=== PATIENT | male | born 1990 | race Hispanic/Latino ===

== ENCOUNTER 2024-11-16 11:20 | Emergency (ER) | payer SELFPAY ==
--- NOTE | ~2024-11-16 | CT_ITS ---
EXAMINATION: CT abdomen pelvis w con DATE: 11/16/2024 16:55 INDICATION: RLQ pain TECHNIQUE: Computed tomography (CT) of the abdomen and pelvis was performed with 100 mL Omnipaque-350 intravenous contrast. Automated exposure control and iterative reconstruction technique were employe d. The dose-length product was 258.90 mGy-cm. COMPARISON: None. FINDINGS: Lower thorax: Unremarkable Liver: Normal. Biliary/Gallbladder: Gallbladder is normal. No bile duct dilation. Pancreas: No mass or duct dilation. Spleen: Normal. Adrenals:No mass. Kidneys: No suspicious mass, obstructing stone, or hydronephrosis. Subcentimeter right lower pole hyp odensity, too small to characterize but most likely represents a cyst. GI tract: Mild distal esophageal and antral wall edema No small or large bowel dilation. Normal appen nigel. Mild diverticulosis without diverticulitis. Mesentery/Peritoneum: No ascites, mass, or free air. Retroperitoneum: No mass. Pelvis: Pelvic organs are within normal limits. Soft Tissues: Small uncomplicated appearing fat-containing umbilical hernia. Bones: No acute osseous finding. IMPRESSION: Mild esophagitis/antral gastritis. Otherwise, no acute abdominopelvic process detected. Reviewed, dictated and finalized at location K.
[2024-11-16 11:22] VITALS: BP 156/94; PULSE 66; RESP 20; TEMP 36.4; O2SAT 99
--- NOTE | 2024-11-16 13:05 | ED_ITS ---
HPI - Abdominal Pain General Chief Complaint: Abdominal Pain <Sara Ventura PA-C - Last Filed: 11/16/24 17:46> Stated Complaint: abd pain <Sara Ventura PA-C - Last Filed: 11/16/24 17:46> Time Seen by Provider: 11/16/24 13:05 <Sara Ventura PA-C - Last Filed: 11/16/24 17:46> Focused HPI: This is a 34 year old male that presents to the ER for abdominal pain. Reports pain in his mid abdomen as well as right lower quadrant. Ongoing over the last 3 days. Reports some dysuria. Denies fever, vomiting, diarrhea, hematuria. GENERAL: Well-appearing, well-nourished, and in no acute distress. HEAD: Normocephalic, atraumatic. CHEST: Clear to auscultation. ?No respiratory distress. HEART: Regular rate and rhythm.? NEURO: ?Alert and oriented x3. Patient screened in triage and initial orders placed.? ?Additional care and disposition to be based upon?diagnostic testing and treatment. <Sara Ventura PA-C - Last Filed: 11/16/24 17:46> History of Present Illness HPI narrative: I agree with the above eyes PI <Riaz Sanchez MD - Last Filed: 11/16/24 21:45> Related Data Allergies/Adverse Reactions: Allergies Allergy/AdvReac Type Severity Reaction Status Date / Time No Known Allergies Allergy Verified 11/16/24 11:26 <Sara Ventura PA-C - Last Filed: 11/16/24 17:46> Review of Systems 2 Review of Systems: All systems reviewed & are unremarkable except as noted in HPI and below <Sara Ventura PA-C - Last Filed: 11/16/24 17:46> Exam 2 Narrative: APPEARANCE: Well appearing, no pain, no distress, well-nourished. HEAD: normocephalic, atraumatic. EYES: PERRLA/EOMI, conjunctivae clear. NOSE: Normal no drainage EARS:TMS clear with good light reflex. THROAT: Pharynx clear, no exudate. NECK: Supple. No adenopathy, no masses. RESPIRATORY: Airway patent, respirations nonlabored. Clear to auscultation bilaterally, no rales, rhonchi, wheezing. CARDIOVASCULAR: Regular rate and rhythm without murmurs rubs or gallops. ABDOMINAL: Mild right lower quadrant tenderness to palpation MUSCULOSKELETAL: Moves all extremities. Strength/ROM intact, No edema, No calf tenderness. NEURO: Alert. Cranial nerves II through XII intact. Good gait. Good coordination SKIN: Warm, dry. Normal Color <Riaz Sanchez MD - Last Filed: 11/16/24 21:45> Course Vital Signs Vital signs: Vital Signs Temperature 97.6 F 11/16/24 11:22 Pulse Rate 66 11/16/24 11:22 Respiratory Rate 20 11/16/24 11:22 Blood Pressure 156/94 H 11/16/24 11:22 Pulse Oximetry 99 11/16/24 11:22 Oxygen Delivery Room Air 11/16/24 11:22 Temperature 97.4 F L 11/16/24 15:13 Pulse Rate 72 11/16/24 17:48 Respiratory Rate 16 11/16/24 17:48 Blood Pressure 127/60 11/16/24 17:48 Pulse Oximetry 99 11/16/24 17:48 Oxygen Delivery Room Air 11/16/24 11:22 <Sara Ventura PA-C - Last Filed: 11/16/24 17:46> Vital Signs Temperature 97.6 F 11/16/24 11:22 Pulse Rate 66 11/16/24 11:22 Respiratory Rate 20 11/16/24 11:22 Blood Pressure 156/94 H 11/16/24 11:22 Pulse Oximetry 99 11/16/24 11:22 Oxygen Delivery Room Air 11/16/24 11:22 Temperature 97.4 F L 11/16/24 15:13 Pulse Rate 72 11/16/24 17:48 Respiratory Rate 16 11/16/24 17:48 Blood Pressure 127/60 11/16/24 17:48 Pulse Oximetry 99 11/16/24 17:48 Oxygen Delivery Room Air 11/16/24 11:22 <Riaz Sanchez MD - Last Filed: 11/16/24 21:45> MDM - Abdominal Pain MDM Narrative Medical decision making narrative: [age] old male per the emergency department for evaluation for lower abdominal pain. Patient is currently a afebrile with no leukocytosis and normal hemoglobin patient has no acute abnormalities on his CMP UA was negative for infection. CT scan was negative for significant hernia. Patient was encouraged close follow-up with primary care physician. <Riaz Sanchez MD - Last Filed: 11/16/24 21:45> Differential Diagnosis Differential diagnosis: Likely abdominal pain, acute appendicitis, constipation, diverticulitis, small bowel obstruction and other <Riaz Sanchez MD - Last Filed: 11/16/24 21:45> Lab Data Attestation: I reviewed the patient's lab results. <Riaz Sanchez MD - Last Filed: 11/16/24 21:45> Result diagrams: 11/16/24 13:12 11/16/24 13:12 <Sara Ventura PA-C - Last Filed: 11/16/24 17:46> Labs: Lab Results 11/16/24 11/16/24 Range/Units 13:12 15:15 WBC 5.9 (4.5-10.0) K/mm3 RBC 5.27 (4.6-6.20) M/mm3 Hgb 15.2 (14.0-18.0) g/dL Hct 46.9 (42.0-52.0) % MCV 89.0 (80-100) fl MCH 28.8 (26-34) pg MCHC 32.4 (32-36) g/dl RDW 13.0 (11.5-14.5) % Plt Count 287 (150-375) k/mm3 MPV 10.1 (7.4-10.4) fl Immature Gran % (Auto) 0.2 (0-0.5) % Neut % (Auto) 59.2 (45.5-73.1) % Lymph % (Auto) 30.2 (18.3-44.2) % [place] % (Auto) 8.4 (2.6-8.5) % Eos % (Auto) 1.7 (0-4.4) % Baso % (Auto) 0.3 (0.2-1.2) % Lymph # (Auto) 1.79 (0.9-3.2) K/mm3 [place] # (Auto) 0.5 (0.1-0.6) K/mm3 Eos # (Auto) 0.1 (0-0.3) K/mm3 Baso # (Auto) 0.0 (0.0-0.1) K/mm3 Abs Immat Gran (auto) 0.01 (0.00-0.031) K/mm3 Absolute Neuts (auto) 3.5 (1.3-6.7) K/mm3 Absolute Nucleated RBC 0.000 (0.0-0.012) K/mm3 Nucleated RBC % 0.0 (0.0-0.2) % Sodium 138 (137-145) mmol/L Potassium 4.2 (3.4-5.0) mmol/L Chloride 99 (98-107) mmol/L Carbon Dioxide 27 (22-30) mmol/L Anion Gap 12 (4-12) mmol/L BUN 17 (9-20) mg/dL Creatinine 0.72 (0.7-1.3) mg/dL Estim Creat Clear Calc 102 ml/min Estimated GFR > 60 (59 - ) Glucose 107 (65-110) mg/dL Calcium 9.3 (8.4-10.2) mg/dL Total Bilirubin 0.5 (0.2-1.3) mg/dL AST 34 (17-59) U/L ALT 28 (6-50) U/L Alkaline Phosphatase 83 (38-126) U/L Total Protein 8.0 (6.3-8.2) g/dL Albumin 4.9 (3.5-5.1) g/dL Lipase 83 (23-300) U/L Urine Color Yellow (Yellow) Urine Appearance Clear (Clear) Urine pH 7.5 (5.0-9.0) Ur Specific [place] 1.026 (1.001-1.035) Urine Protein Trace (Negative) mg/dL Urine Glucose (UA) Negative (Negative) mg/dL Urine Ketones Negative (Negative) mg/dL Ur Blood (Man) Negative (Negative) Urine Nitrate Negative (Negative) Urine Bilirubin Negative (Negative) Urine Urobilinogen 0.2 (<2.0) mg/dL Leukocyte Esterase Rfl Negative (Negative) CRICKET/UL Urine RBC 0-2 (0-2) /hpf Urine WBC 0-5 (0-3) /hpf Ur Squamous Epith Cells None seen (Few) /hpf Urine Bacteria None seen /hpf Urine Casts 0-2 <Sara Ventura PA-C - Last Filed: 11/16/24 17:46> Lab Results 11/16/24 11/16/24 Range/Units 13:12 15:15 WBC 5.9 (4.5-10.0) K/mm3 RBC 5.27 (4.6-6.20) M/mm3 Hgb 15.2 (14.0-18.0) g/dL Hct 46.9 (42.0-52.0) % MCV 89.0 (80-100) fl MCH 28.8 (26-34) pg MCHC 32.4 (32-36) g/dl RDW 13.0 (11.5-14.5) % Plt Count 287 (150-375) k/mm3 MPV 10.1 (7.4-10.4) fl Immature Gran % (Auto) 0.2 (0-0.5) % Neut % (Auto) 59.2 (45.5-73.1) % Lymph % (Auto) 30.2 (18.3-44.2) % [place] % (Auto) 8.4 (2.6-8.5) % Eos % (Auto) 1.7 (0-4.4) % Baso % (Auto) 0.3 (0.2-1.2) % Lymph # (Auto) 1.79 (0.9-3.2) K/mm3 [place] # (Auto) 0.5 (0.1-0.6) K/mm3 Eos # (Auto) 0.1 (0-0.3) K/mm3 Baso # (Auto) 0.0 (0.0-0.1) K/mm3 Abs Immat Gran (auto) 0.01 (0.00-0.031) K/mm3 Absolute Neuts (auto) 3.5 (1.3-6.7) K/mm3 Absolute Nucleated RBC 0.000 (0.0-0.012) K/mm3 Nucleated RBC % 0.0 (0.0-0.2) % Sodium 138 (137-145) mmol/L Potassium 4.2 (3.4-5.0) mmol/L Chloride 99 (98-107) mmol/L Carbon Dioxide 27 (22-30) mmol/L Anion Gap 12 (4-12) mmol/L BUN 17 (9-20) mg/dL Creatinine 0.72 (0.7-1.3) mg/dL Estim Creat Clear Calc 102 ml/min Estimated GFR > 60 (59 - ) Glucose 107 (65-110) mg/dL Calcium 9.3 (8.4-10.2) mg/dL Total Bilirubin 0.5 (0.2-1.3) mg/dL AST 34 (17-59) U/L ALT 28 (6-50) U/L Alkaline Phosphatase 83 (38-126) U/L Total Protein 8.0 (6.3-8.2) g/dL Albumin 4.9 (3.5-5.1) g/dL Lipase 83 (23-300) U/L Urine Color Yellow (Yellow) Urine Appearance Clear (Clear) Urine pH 7.5 (5.0-9.0) Ur Specific [place] 1.026 (1.001-1.035) Urine Protein Trace (Negative) mg/dL Urine Glucose (UA) Negative (Negative) mg/dL Urine Ketones Negative (Negative) mg/dL Ur Blood (Man) Negative (Negative) Urine Nitrate Negative (Negative) Urine Bilirubin Negative (Negative) Urine Urobilinogen 0.2 (<2.0) mg/dL Leukocyte Esterase Rfl Negative (Negative) CRICKET/UL Urine RBC 0-2 (0-2) /hpf Urine WBC 0-5 (0-3) /hpf Ur Squamous Epith Cells None seen (Few) /hpf Urine Bacteria None seen /hpf Urine Casts 0-2 <Riaz Sanchez MD - Last Filed: 11/16/24 21:45> Imaging Data Radiologist's impression: ITS Impressions Abdomen/Pelvis CT 11/16/24 16:56 IMPRESSION: Mild esophagitis/antral gastritis. Otherwise, no acute abdominopelvic process detected. <Sara Ventura PA-C - Last Filed: 11/16/24 17:46> ITS Impressions Abdomen/Pelvis CT 11/16/24 16:56 IMPRESSION: Mild esophagitis/antral gastritis. Otherwise, no acute abdominopelvic process detected. <Riaz Sanchez MD - Last Filed: 11/16/24 21:45> Discharge Plan Discharge Clinical Impression: Abdominal pain Qualifiers: Abdominal location: lower abdomen, unspecified Qualified Code(s): R10.30 - Lower abdominal pain, unspecified <EVELIA Spivey Last Filed: 11/16/24 17:46> Patient Disposition: Home <EVELIA Spivey Last Filed: 11/16/24 17:46> Condition: Stable <EVELIA Spivey Last Filed: 11/16/24 17:46> Instructions: Antibiotic Form, Inguinal Hernia (ED), Abdominal Pain (ED) <EVELIA Spivey Last Filed: 11/16/24 17:46> Additional Instructions: Tylenol and ibuprofen for pain control. Avoid heavy lifting. Have close follow-up with your primary care physician. Your CT scan showed no evidence of hernia but your symptoms may be signs of a forming hernia. <Sara Ventura PA-C - Last Filed: 11/16/24 17:46> Patient Language: Bhutanese <Sara Ventura PA-C - Last Filed: 11/16/24 17:46> Follow-up/Referrals: PHYSICIAN,AGRICULTURAL CHEMIST [Primary Care Provider] - <EVELIA Spivey Last Filed: 11/16/24 17:46>
[2024-11-16 13:21] LABS: Basophils Percent Auto 0.3 % (0.2-1.2); Eosinophils Absolute Auto 0.1 K/mm3 (0-0.3); Eosinophils Percent Auto 1.7 % (0-4.4); Hematocrit 46.9 % (42.0-52.0); Hemoglobin 15.2 g/dL (14.0-18.0); Immature Granulocyte Absolute 0.01 K/mm3 (0.00-0.031); Immature Granulocyte Percent A 0.2 % (0-0.5); Lymphocytes Absolute Auto 1.79 K/mm3 (0.9-3.2); Lymphocytes Percent Auto 30.2 % (18.3-44.2); Mean Corpuscular HGB Conc 32.4 g/dl (32-36); Mean Corpuscular Hemoglobin 28.8 pg (26-34); Mean Platelet Volume 10.1 fl (7.4-10.4); Monocytes Absolute Auto 0.5 K/mm3 (0.1-0.6); Monocytes Percent Auto 8.4 % (2.6-8.5); Neutrophils Absolute Auto 3.5 K/mm3 (1.3-6.7); Neutrophils Percent Auto 59.2 % (45.5-73.1); Platelet Count Result 287 k/mm3 (150-375); Red Blood Count 5.27 M/mm3 (4.6-6.20); White Blood Count 5.9 K/mm3 (4.5-10.0)
[2024-11-16 13:42] LABS: Alanine Aminotransferase 28 U/L (6-50); Albumin Level 4.9 g/dL (3.5-5.1); Alkaline Phosphatase 83 U/L (38-126); Anion Gap 12 mmol/L (4-12); Aspartate Amino Transferase 34 U/L (17-59); Bilirubin,Total 0.5 mg/dL (0.2-1.3); Blood Urea Nitrogen 17 mg/dL (9-20); Calcium 9.3 mg/dL (8.4-10.2); Carbon Dioxide 27 mmol/L (22-30); Chloride 99 mmol/L (98-107); Estimated CRCL calculation 102 ml/min; Estimated Glomerular Filt Rate > 60; Glucose 107 mg/dL (65-110); Lipase 83 U/L (23-300); Potassium 4.2 mmol/L (3.4-5.0); Sodium 138 mmol/L (137-145)
[2024-11-16 15:13] VITALS: BP 120/59; PULSE 65; RESP 20; TEMP 36.3; O2SAT 98
[2024-11-16 15:26] LABS: Add Urine Microscopic? YES; Appearance Urine Clear (Clear); Bacteria Urine None Seen /hpf; Bilirubin Urine Negative (Negative); Blood Urine Negative (Negative); Color Urine Yellow (Yellow); Glucose Urine UA Negative (Negative); Ketones Urine Negative (Negative); Leukocyte Esterase Ur Negative LEU/UL (Negative); Nitrate Urine Negative (Negative); Non Pathogenic Casts 0-2; Protein Urine Trace mg/dL (Negative); RBC Urine 0-2 /hpf (0-2); Specific Grav Ur 1.026 (1.001-1.035); Squamous Epithelial Cell Urine None Seen /hpf (Few); Urobilinogen Urine 0.2 mg/dL (<2.0); WBC Urine 0-5 /hpf (0-3); pH Urine 7.5 (5.0-9.0)
[2024-11-16 17:48] VITALS: BP 127/60; PULSE 72; RESP 16; O2SAT 99
== END 2024-11-16 17:49 | disposition home or self-care (01) ==
PROVIDERS: Physician Assistant; Emergency Provider Emergency Medicine
DX: R10.31 Right lower quadrant pain (principal); K20.90 Esophagitis, unspecified without bleeding; K29.70 Gastritis, unspecified, without bleeding
CPT/HCPCS: 36415; 74177; 80053; 81001; 83690; 85025; 99284; Q9967